=== PATIENT | female | born 1980 | race American Indian/Alaskan Native ===

== ENCOUNTER 2017-01-09 07:58 | Emergency (ER) | payer BC ==
[2017-01-09 08:28] VITALS: BMI 29.4
[2017-01-09] MEDS ORDERED: Sodium Chloride 0.9% 1,000 ML IV SCH ×2 (09:30→09:51)
[2017-01-09 09:34] LABS: ADD MANUAL DIFF? NO
--- NOTE | 2017-01-09 09:35 | ED PDOC ---
Arrival/HPI <NardadulceShoaib L - Last Filed: 01/09/17 13:37> - General Historian: Patient - History of Present Illness Time/Duration: Prior to Arrival Symptom Onset: Sudden Symptom Course: Unchanged Context: Home <ManuelaEduAnnabelle - Last Filed: 01/09/17 13:42> - General Chief Complaint: Abdominal Pain Time Seen by Provider: 01/09/17 08:55 - History of Present Illness Narrative History of Present Illness (Text): 01/09/17 09:31 36 yo female with PMH of carpel tunnel syndrome presents to ED with diffuse abdominal pain, nausea and vomiting. Patient state that 2 days ago she had shrimp and grits for breakfast from outside source, about an hour after eating she began to have nausea and vomiting with diffuse abdominal pain. Patient states that she spent the day vomiting multiple time, denies any blood with emesis. Patient states that the follow day she felt better and was able to tolerate solid foods. However this morning patient was feeling nauseous and had 7-8 episodes of emesis. She denies any blood with vomiting. She describes abdominal pain as diffuse soreness. She state that Advil and naproxen helped temporarily alleviated the abdominal pain. She also reports loose bowel movements that started this morning. She reports chills and general weakness, denies fever, headache, cough, sob, dizziness, urinary symptoms. Patient denies any sick contact, or recent travel outside [place]. PMD: Dr. Doan (Annabelle Roy) Past Medical History - Provider Review Nursing Documentation Reviewed: Yes - Travel History Have you recently traveled outside [place] w/in the past 3 mons?: No - Psychiatric Hx Substance Use: No - Surgical History Hx Section: Yes (x2) - Anesthesia Hx Anesthesia: Yes Hx Anesthesia Reactions: No Hx Malignant Hyperthermia: No <Annabelle Roy - Last Filed: 01/09/17 13:42> Family/Social History - Physician Review Nursing Documentation Reviewed: Yes Family/Social History: No Known Family HX Smoking Status: Never Smoked Hx Alcohol Use: Yes Frequency of alcohol use: Socially Hx Substance Use: No <Annabelle Roy - Last Filed: 01/09/17 13:42> Allergies/Home Meds <FlynnShoaib L - Last Filed: 01/09/17 13:37> <Annabelle Roy - Last Filed: 01/09/17 13:42> Allergies/Adverse Reactions: Allergies No Known Allergies Allergy (Verified 01/09/17 08:28) Review of Systems - Review of Systems Constitutional: Fatigue. absent: Fevers Eyes: Normal. absent: Vision Changes ENT: Normal. absent: Hearing Changes, Sore Throat, Sinus Congestion Respiratory: Normal. absent: SOB, Cough, Wheezing Cardiovascular: Normal. absent: Chest Pain, Edema, Calf Pain, Syncope Gastrointestinal: Abdominal Pain, Nausea, Vomiting. absent: Constipation, Hematochezia, Hematemesis Genitourinary Female: Normal. absent: Dysuria, Frequency, Hematuria Musculoskeletal: Normal. absent: Arthralgias, Back Pain, Joint Swelling, Myalgias Skin: Normal. absent: Rash, Pruritis, Laceration, Abscess Neurological: Normal. absent: Headache, Dizziness, Focal Weakness, Speech Changes Endocrine: Normal. absent: Diaphoresis, Polyuria Hemo/Lymphatic: Normal. absent: Easy Bleeding, Easy Bruising Psychiatric: Normal <Annabelle Roy - Last Filed: 01/09/17 13:42> Physical Exam - Systems Exam Head: Present: Atraumatic, Normocephalic Pupils: Present: PERRL. No: Non-Reactive, Pinpoint Extroacular Muscles: Present: EOMI Conjunctiva: Present: Normal. No: Injected, Icteric Mouth: Present: Moist Mucous Membranes Neck: Present: Normal Range of Motion. No: Meningeal Signs, MIDLINE TENDERNESS Respiratory/Chest: Present: Clear to Auscultation, Good Air Exchange. No: Respiratory Distress, Accessory Muscle Use, Wheezes, Rales, Rhonchi, Tachypneic Cardiovascular: Present: Regular Rate and Rhythm, Normal S1, S2. No: Murmurs, Tachycardic Abdomen: Present: Normal Bowel Sounds. No: Tenderness, Distention, Peritoneal Signs Back: Present: Normal Inspection Upper Extremity: Present: Normal Inspection. No: Cyanosis, Edema Lower Extremity: Present: Normal Inspection. No: Edema Neurological: Present: GCS=15, CN II-XII Intact, Speech Normal Skin: Present: Warm, Dry, Normal Color. No: Rashes Psychiatric: Present: Alert, Oriented x 3, Normal Insight, Normal Concentration <Annabelle Roy - Last Filed: 01/09/17 13:42> Vital Signs Temp Pulse Resp BP Pulse Ox 01/09/17 13:36 98.8 F 80 16 147/80 99 01/09/17 11:46 75 16 158/96 H 97 01/09/17 08:28 98.5 F 64 18 141/68 100 Medical Decision Making - Lab Interpretations I have reviewed the lab results: Yes <Shoaib Pruett - Last Filed: 01/09/17 13:37> - Lab Interpretations I have reviewed the lab results: Yes <Annabelle Roy - Last Filed: 01/09/17 13:42> ED Course and Treatment: Patient seen and examined with resident. Came up with treatment and disposition plan with resident. The patient is a 36 year old female who comes into the emergency department for evaluation of diffuse abdominal pain associated with nausea and vomiting. Additional HPI details as noted by the resident. Physical examination reveals no acute findings. Lab work ordered to rule out infection. Pepcid, Zofran and IV Fluids given for symptomatic control. On re-evaluation, the patient feels better and is in no acute distress. Patient is able to tolerate PO without diffuclty. Results and plan were discussed with the patient, who expresses understanding. Patient in agreement with plan to discharged home. Patient is stable for discharge. Patient was instructed to follow up with physician/clinic in 1-2 days or return if symptoms worsen or new concerning symptoms arise. (Shoaib Pruett) 01/09/17 09:45 Impression: 36 yo female with PMH of carpel tunnel syndrome presents to ED with diffuse abdominal pain, nausea and vomiting. Differential diagnoses include but not limited to: - gastroenteritis Plan: - cbc - cmp - lipase, amylase - IVF - zofran - pepcid 01/09/17 11:17 - labs are reviewed, no leukocytosis. Patient states she feeling somewhat better. 01/09/17 13:06 - Patient is feeling better, tolerating PO intake. No vomiting in ED. Abd is soft, nontender. Prescription were given to patient. She is to follow up with PMD. Discharge instructions were discussed with patient, all questions were answered. (Annabelle Roy) - Lab Interpretations Lab Results: 01/09/17 09:33 01/09/17 09:33 Lab Results 01/09/17 09:33: Sodium 139, Potassium 4.0, Chloride 104, Carbon Dioxide 25, Anion Gap 14, BUN 15, Creatinine 0.8, Est GFR ( Amer) > 60, Est GFR (Non- Af Amer) > 60, Random Glucose 117 H, Calcium 8.8, Total Bilirubin 0.5, AST 29, ALT 32, Alkaline Phosphatase 49, Total Protein 8.1, Albumin 4.3, Globulin 3.8, Albumin/Globulin Ratio 1.1, Amylase 71, Lipase 54 01/09/17 09:33: WBC 5.6, RBC 4.14, Hgb 12.9, Hct 37.4, MCV 90.3, MCH 31.2, MCHC 34.5, RDW 13.1, Plt Count 217, MPV 9.6, Gran % 75.1 H, Lymph % (Auto) 19.0 L, [place] % (Auto) 5.0, Eos % (Auto) 0.5 L, Baso % (Auto) 0.4, Gran # 4.24, Lymph # 1.1 L, [place] # 0.3, Eos # 0.0, Baso # 0.02 - Medication Orders Current Medication Orders: Discontinued Medications Famotidine (Pepcid) 20 mg IVP STAT STA Stop: 01/09/17 09:36 Last Admin: 01/09/17 10:30 Dose: 20 mg Sodium Chloride (Sodium Chloride 0.9%) 1,000 mls @ 100 mls/hr IV .Q10H [facility] Last Admin: 01/09/17 09:36 Dose: 100 mls/hr Sodium Chloride (Sodium Chloride 0.9%) 1,000 mls @ 999 mls/hr IV .Q1H1M STA Stop: 01/09/17 10:51 Last Admin: 01/09/17 10:15 Dose: 999 mls/hr Ondansetron HCl (Zofran Inj) 2 mg IVP STAT STA Stop: 01/09/17 09:38 Last Admin: 01/09/17 09:47 Dose: 2 mg - PA / [employer] / Resident Statement / has reviewed & agrees with the documentation as recorded. /DO has examined the patient and agrees with the treatment plan. - Scribe Statement The provider has reviewed the documentation as recorded by the Scribe <Shoaib Pruett - Last Filed: 01/09/17 13:37> <Annabelle Roy - Last Filed: 01/09/17 13:42> - Scribe Statement Raeann Valenzuela Provider Scribe Attestation: All medical record entries made by the Scribe were at my direction and personally dictated by me. I have reviewed the chart and agree that the record accurately reflects my personal performance of the history, physical exam, medical decision making, and the department course for this patient. I have also personally directed, reviewed, and agree with the discharge instructions and disposition. (Shoaib Pruett) Disposition/Present on Arrival - Present on Arrival Any Indicators Present on Arrival: No <Shoaib Pruett - Last Filed: 01/09/17 13:37> - Present on Arrival Any Indicators Present on Arrival: No History of DVT/PE: No History of Uncontrolled Diabetes: No Urinary Catheter: No History of Decub. Ulcer: No History Surgical Site Infection Following: None - Disposition Have Diagnosis and Disposition been Completed?: Yes Disposition Time: 13:00 <Annabelle Roy - Last Filed: 01/09/17 13:42> - Disposition Diagnosis: Gastroenteritis Disposition: HOME/ ROUTINE Condition: GOOD Additional Instructions: Sil Pena, thank you for letting us take care of you today. Your provider was Dr. Roy and Dr. Pruett. You were treated for gastroenteritis. The emergency medical care you received today was directed at your acute symptoms. If you were prescribed any medication, please fill it and take as directed. It may take several days for your symptoms to resolve. Return to the Emergency Department if your symptoms worsen, do not improve, or if you have any other problems. Please contact your doctor or call one of the physicians/clinics you have been referred to that are listed on the Patient Visit Information form that is included in your discharge packet. Bring any paperwork you were given at discharge with you along with any medications you are taking to your follow up visit. Our treatment cannot replace ongoing medical care by a primary care provider (PCP) outside of the emergency department. Thank you for allowing the [facility] team to be part of your care today. Prescriptions: Famotidine [Pepcid] 20 mg PO BID #20 tab Ondansetron HCl [Zofran] 4 mg PO Q8 PRN #10 tablet PRN Reason: Nausea/Vomiting Referrals: Aimee Doan MD [Primary Care Provider] - Follow up with primary Forms: WORK NOTE
[2017-01-09 09:39] LABS: BASO # 0.02 K/mm3 (0.0-2.0); BASO % 0.4 % (0.0-3.0); EOS % 0.5 % (1.5-5.0); GRAN # 4.24 (1.4-6.5); GRAN % 75.1 % (50.0-68.0); HEMATOCRIT 37.4 % (36.0-48.0); LYMPH # 1.1 (1.2-3.4); MEAN CELL VOLUME 90.3 fL (80.0-105.0); MEAN CORPUSCULAR HEMOGLOBIN 31.2 pg (25.0-35.0); MEAN CORPUSCULAR HGB CONC 34.5 g/dl (31.0-37.0); MEAN PLATELET VOLUME 9.6 fl (7.0-11.0); MONO # 0.3 (0.1-0.6); PLATELET COUNT 217 10^3/uL (120.0-450.0); RED CELL DISTRIBUTION WIDTH 13.1 % (11.5-14.5); WHITE BLOOD COUNT 5.6 10^3/ul (4.5-11.0)
[2017-01-09 09:46] LABS: ALB/GLOB RATIO 1.1 (1.1-1.8); ALKALINE PHOSPHATASE 49 U/L (38-133); ALT/SGPT 32 U/L (7-56); AMYLASE 71 U/L (35-125); AST/SGOT 29 U/L (15-39); BILIRUBIN,TOTAL 0.5 mg/dL (0.2-1.3); BLOOD UREA NITROGEN 15 mg/dL (7-21); CALCIUM 8.8 mg/dL (8.4-10.5); CARBON DIOXIDE 25 mmol/L (21-33); CHLORIDE 104 mmol/L (98-107); GFR AFRICAN-AMERICAN > 60; GLUCOSE,RANDOM 117 mg/dL (70-110); LIPASE 54 U/L (23-300); SODIUM 139 mmol/L (132-148); TOTAL PROTEIN 8.1 g/dL (5.8-8.3)
[2017-01-09] MEDS ORDERED: Sodium Chloride 0.9% 1,000 ML IV STA (09:51)
[2017-01-09 11:49] VITALS: RESP 16
[2017-01-09 13:36] VITALS: BP 147/80; PULSE 80; TEMP 98.8; O2SAT 99
== END 2017-01-09 13:41 | disposition home or self-care (01) ==
LOC: ED 07:58
DX: K52.9 Noninfective gastroenteritis and colitis, unspecified (principal)
CPT/HCPCS: 80053; 82150; 83690; 85025; 96361; 96374; 96375; 99285; J2405; J7040